=== PATIENT | female | born 1960 | race Asian ===

== ENCOUNTER 2022-05-24 06:57 | Emergency (ER) | payer MEDICAID ==
[~2022-05-24] VITALS: Ht 160 cm; Wt 65.0 kg
[2022-05-24 07:39] VITALS: BP 139/90
[2022-05-24] MEDS ORDERED: VALA500T33 PO (08:40)
[2022-05-24] MEDS ORDERED: ACETAMINOPHEN 500 MG TAB PO ONE (09:00)
== END 2022-05-24 09:28 | disposition home or self-care (01) ==
LOC: ER 06:57
DX: H66.91 Otitis media, unspecified, right ear (principal); B02.9 Zoster without complications; Z85.3 Personal history of malignant neoplasm of breast